=== PATIENT | male | born 1950 | race Caucasian/White ===

== ENCOUNTER 2022-03-18 09:14 | Day surgery (SDC) | payer MEDICARE, MEDICAID ==
[~2022-03-18] VITALS: Ht 172.7 cm; Wt 68.0 kg
[~2022-03-18 09:14] MED LIST: CITA40TA22 PO; LISI10TA27 PO; OMEP20CA4 PO; SPIIN INH
[2022-03-18] MEDS ORDERED: ESCI20TA25 PO (09:28)
[2022-03-18 09:30] VITALS: BP 152/91
[2022-03-18] MEDS ORDERED: ESOM40CA PO (09:36)
[2022-03-18] MEDS ORDERED: fentaNYL/PF 50MCG/1 ML 2ML syringe ONE (09:45)
[2022-03-18] MEDS ORDERED: MIDAZolam 1 MG/ML 5ML VIAL ONE (09:46)
[2022-03-18] MEDS ORDERED: LIDOcaine Viscous 15ml cup ONE (09:46)
[2022-03-18 11:23] VITALS: BP 159/86
[2022-03-18 11:33] VITALS: BP 141/81
[2022-03-18 11:43] VITALS: BP 147/86
[2022-03-18 11:53] VITALS: BP 134/81
== END 2022-03-18 12:00 | disposition home or self-care (01) ==
LOC: GI LAB 09:14
PROVIDERS: ATTEND Internal Medicine Gastroenterology
DX: K21.00 Gastro-esophageal reflux disease with esophagitis, without bleeding (principal); K22.89 Other specified disease of esophagus; K44.9 Diaphragmatic hernia without obstruction or gangrene; K22.70 Barrett's esophagus without dysplasia; J44.9 Chronic obstructive pulmonary disease, unspecified; Z79.899 Other long term (current) drug therapy
CPT/HCPCS: 43239; 88305; G0500; J2250; J3010; J7030; Z7512; 99152; A4620

== ENCOUNTER 2024-12-27 13:16 | Outpatient (CLI) | payer MEDICARE, MEDICAID ==
[~2024-12-27 13:16] MED LIST changes: -CITA40TA22 PO; +ESCI20TA36 PO; +ESOM40CA PO; -OMEP20CA4 PO
[2024-12-27] MEDS ORDERED: barium sulfate 340gm for oral suspension 1 BOTTLE SUSP.RECON PO ONE (15:00)
== END 2024-12-27 23:59 | disposition home or self-care (01) ==
LOC: RAD 13:16
PROVIDERS: ATTEND Surgery
DX: K21.9 Gastro-esophageal reflux disease without esophagitis (principal); K44.9 Diaphragmatic hernia without obstruction or gangrene
CPT/HCPCS: 74220